=== PATIENT | female | born 1930 | race Caucasian/White ===

== ENCOUNTER → 2017-03-27 | Outpatient (CLI) | payer BC | END | disposition home or self-care (01) | LOC: SMA 10:22 | PROVIDERS: ATTEND Family Medicine | DX: R92.8 Other abnormal and inconclusive findings on diagnostic imaging of breast (principal); Z85.3 Personal history of malignant neoplasm of breast; Z90.11 Acquired absence of right breast and nipple | CPT/HCPCS: G0204 ==

== ENCOUNTER 2018-03-27 09:22 | Outpatient (CLI) | payer BC | END 2018-03-27 19:54 | disposition home or self-care (01) | LOC: SMA 09:22 | PROVIDERS: ATTEND Family Medicine | DX: R92.1 Mammographic calcification found on diagnostic imaging of breast (principal); Z85.3 Personal history of malignant neoplasm of breast; Z90.11 Acquired absence of right breast and nipple | CPT/HCPCS: 77065 ==

== ENCOUNTER 2018-08-12 16:15 | Inpatient (IN) | payer BC ==
[~2018-08-12] VITALS: Ht 142.2 cm; Wt 60.8 kg
[2018-08-12 16:21] VITALS: BP_SYST 97
[2018-08-12] MEDS ORDERED: DILTIAZEM HCL 25 MG/5 ML VIAL IVP ONE (16:30)
[2018-08-12] MEDS ORDERED: DILTIAZEM HCL 60 MG TABLET PO ONE (16:30)
[2018-08-12 16:50] LABS: BASOPHILS % (AUTO) 0.2 % (0.0-2.0); EOSINOPHILS % (AUTO) 0.1 % (0.0-4.0); HEMATOCRIT 37.8 % (36-48); HEMOGLOBIN 12.4 g/dL (12.0-16.0); LYMPHOCYTES % (AUTO) 19.1 % (20.5-51.5); MEAN CORPUSCULAR HEMOGLOBIN 29 pg (27-31); MEAN CORPUSCULAR HGB CONC 33 % (32-36); MEAN CORPUSCULAR VOLUME 88 fL (79.0-98.0); MONOCYTES # (AUTO) 0.4 K/uL (0.0-1.0); MONOCYTES % (AUTO) 3.8 % (1.7-9.3); NEUTROPHILS # (AUTO) 8.1 K/uL (1.8-7.7); NEUTROPHILS % (AUTO) 76.8 % (40.0-70.0); PLATELET COUNT (AUTO) 331 K/uL (130-430); RED BLOOD CELL COUNT(AUTO) 4.29 MIL/uL (4.2-6.2); RED CELL DISTRIBUTION WIDTH 13.4 % (9.0-15.0); WHITE BLOOD COUNT (AUTO) 10.5 K/uL (4.8-10.8)
[2018-08-12 16:56] LABS: ANION GAP 11 (5-15); CHLORIDE 97 mmol/L (98-107); CREATININE 2.32 mg/dL (0.55-1.30); GLUCOSE 118 mg/dL (70-99); POTASSIUM 4.8 mmol/L (3.5-5.1); SODIUM SERUM 129 mmol/L (136-145); UREA NITROGEN, BLOOD 63 mg/dL (8-21)
[2018-08-12 16:59] LABS: INR 1.3 (0.8-1.2); PROTHROMBIN TIME 13.5 SECS (9.5-12.5)
[2018-08-12 17:01] LABS: ALANINE AMINOTRANSFERASE 135 U/L (12-78); ALBUMIN 3.7 g/dL (3.4-4.8); ASPARTATE AMINOTRANSFERASE 70 U/L (10-37); TOTAL BILIRUBIN 0.7 mg/dL (0.0-1.0)
[2018-08-12] MEDS ORDERED: GABA300S PO (17:56)
[2018-08-12] MEDS ORDERED: CALCIUM (17:56)
[2018-08-12] MEDS ORDERED: RIVA15TA PO (17:56)
[2018-08-12] MEDS ORDERED: CYAN100070 PO (17:56)
[2018-08-12] MEDS ORDERED: CHOLECALCIFEROL (17:56)
[2018-08-12] MEDS ORDERED: ZINC (17:56)
[2018-08-12] MEDS ORDERED: ROPI1TAB4 PO (17:56)
[2018-08-12] MEDS ORDERED: LOSA50TA3 PO (17:56)
[2018-08-12] MEDS ORDERED: TRIA1TAB96 PO (17:56)
[2018-08-12 19:42] VITALS: BP_SYST 123
[2018-08-12 21:26] VITALS: BP_SYST 114
[2018-08-13 01:03] VITALS: BP_SYST 101
[2018-08-13] MEDS ORDERED: FUROSEMIDE 20 MG/2 ML VIAL IVP ONE (06:00)
[2018-08-13] MEDS ORDERED: METOPROLOL TARTRATE 25 MG TABLET PO SCH ×3 (06:00→18:00)
[2018-08-13 08:30] VITALS: BP_SYST 122
[2018-08-13] MEDS ORDERED: DILTIAZEM HCL 25 MG/5 ML VIAL IVP ONE (10:00)
[2018-08-13 12:33] VITALS: BP_SYST 118
[2018-08-13] MEDS ORDERED: DILTIAZEM HCL 30 MG TABLET PO ONE (12:45)
[2018-08-13 16:22] VITALS: BP_SYST 124
[2018-08-13] MEDS: RIVAROXABAN 15 MG TABLET PO SCH (17:54)
[2018-08-13] MEDS: DILTIAZEM HCL 30 MG TABLET PO SCH (17:54)
[2018-08-13 20:00] VITALS: BP_SYST 128
[2018-08-13] MEDS: METOPROLOL TARTRATE 50 MG TABLET PO SCH (20:25)
[2018-08-14] MEDS: DILTIAZEM HCL 30 MG TABLET PO SCH ×4 (00:06→17:31)
[2018-08-14] MEDS ORDERED: LORazepam 2 MG/ML VIAL IM ONE (04:00)
[2018-08-14 08:06] VITALS: BP_SYST 132
[2018-08-14] MEDS: METOPROLOL TARTRATE 50 MG TABLET PO SCH ×2 (09:00→20:58)
[2018-08-14] MEDS ORDERED: DILTIAZEM HCL 25 MG/5 ML VIAL IVP ONE (13:00)
[2018-08-14] MEDS ORDERED: LORazepam 2 MG/ML VIAL IVP ONE (13:00)
[2018-08-14 13:45] VITALS: BP_SYST 107
[2018-08-14] MEDS: RIVAROXABAN 15 MG TABLET PO SCH (17:31)
[2018-08-14 18:00] VITALS: BP_SYST 133
[2018-08-15 00:01] VITALS: BP_SYST 126
[2018-08-15 04:02] VITALS: BP_SYST 129
[2018-08-15] MEDS: DILTIAZEM HCL 30 MG TABLET PO SCH ×2 (05:08)
[2018-08-15] MEDS ORDERED: DILTIAZEM HCL 30 MG TABLET PO ONE (07:15)
[2018-08-15] MEDS ORDERED: DILTIAZEM HCL 25 MG/5 ML VIAL IVP ONE (07:15)
[2018-08-15 07:31] VITALS: BP_SYST 142
[2018-08-15] MEDS: DILTIAZEM HCL 60 MG TABLET PO SCH ×3 (12:03→23:53)
[2018-08-15 12:08] VITALS: BP_SYST 116
[2018-08-15 17:34] VITALS: BP_SYST 134
[2018-08-15] MEDS: RIVAROXABAN 15 MG TABLET PO SCH (17:42)
[2018-08-15 19:05] VITALS: BP_SYST 137
[2018-08-15] MEDS: METOPROLOL TARTRATE 50 MG TABLET PO SCH (20:25)
[2018-08-16 00:35] VITALS: BP_SYST 128
[2018-08-16] MEDS: DILTIAZEM HCL 60 MG TABLET PO SCH (05:34)
[2018-08-16 08:01] VITALS: BP_SYST 129
[2018-08-16] MEDS: METOPROLOL TARTRATE 50 MG TABLET PO SCH (08:43)
[2018-08-16] MEDS ORDERED: METO-442 PO (09:16)
[2018-08-16] MEDS ORDERED: DILT240C91 PO (09:17)
[2018-08-16 09:20] VITALS: BP_SYST 129
== END 2018-08-16 09:40 | disposition home or self-care (01) | DRG 682 ==
LOC: SED 16:15 → STU 18:15
PROVIDERS: ADMIT Internal Medicine Hospice and Palliative Medicine; ATTEND Internal Medicine Hospice and Palliative Medicine
DX: N17.0 Acute kidney failure with tubular necrosis (principal); I50.33 Acute on chronic diastolic (congestive) heart failure; I11.0 Hypertensive heart disease with heart failure; I48.0 Paroxysmal atrial fibrillation; I48.2 Chronic atrial fibrillation; I73.9 Peripheral vascular disease, unspecified; Z86.73 Personal history of transient ischemic attack (TIA), and cerebral infarction without residual deficits; Z90.710 Acquired absence of both cervix and uterus; Z90.11 Acquired absence of right breast and nipple
CPT/HCPCS: 36415; 70450-TC; 71045; 80053; 82607; 83880; 84443-TC; 84484; 85025; 85610-TC; 85730-TC; 93005; 96374; 99285; G0378; J1940; J2060; J3490